=== PATIENT | female | born 1950 | race African-American/Black ===

== ENCOUNTER 2021-08-05 07:23 | Day surgery (SDC) | payer OTHER, SELFPAY ==
[~2021-08-05] VITALS: Ht 165.1 cm; Wt 97.1 kg
[2021-08-05] MEDS ORDERED: SIMETHICONE 40 MG/0.6 ML ML ONE (09:11)
[2021-08-05] MEDS: MEPERIDINE 100 MG INJ. 100 MG/ML VIAL ONE ×2 (09:15→09:33)
[2021-08-05] MEDS: MIDAZOLAM HCL 5 MG/5 ML VIAL ONE ×4 (09:15→09:28)
[2021-08-05 12:34] VITALS: BP_SYST 122
== END 2021-08-05 11:20 | disposition home or self-care (01) ==
LOC: SDS 07:23 → SMU 07:24 → SDS 11:20
PROVIDERS: ATTEND Internal Medicine Gastroenterology
DX: R19.5 Other fecal abnormalities (principal); D12.0 Benign neoplasm of cecum; D12.3 Benign neoplasm of transverse colon; K57.30 Diverticulosis of large intestine without perforation or abscess without bleeding; K64.8 Other hemorrhoids; I10 Essential (primary) hypertension; Z87.891 Personal history of nicotine dependence; Z79.899 Other long term (current) drug therapy
CPT/HCPCS: 36415; 45385; 87426; 88305 ×2; 99152; 99153; G0378; J2175; J2250; 45384

== ENCOUNTER 2021-10-12 08:58 | Day surgery (SDC) | payer OTHER, SELFPAY ==
[~2021-10-12] VITALS: Ht 166.4 cm; Wt 95.7 kg
[2021-10-12] MEDS ORDERED: MIDAZOLAM HCL 5 MG/5 ML VIAL ONE (10:01)
[2021-10-12] MEDS ORDERED: MEPERIDINE 100 MG INJ. 100 MG/ML VIAL ONE (10:01)
[2021-10-12 14:39] VITALS: BP_SYST 115
== END 2021-10-12 12:10 | disposition home or self-care (01) ==
LOC: SDS 08:58 → SMU 09:00 → SDS 12:10
PROVIDERS: ATTEND Internal Medicine Gastroenterology
DX: K92.1 Melena (principal); K57.30 Diverticulosis of large intestine without perforation or abscess without bleeding; K64.8 Other hemorrhoids; K52.9 Noninfective gastroenteritis and colitis, unspecified; I10 Essential (primary) hypertension; Z87.891 Personal history of nicotine dependence; Z88.2 Allergy status to sulfonamides; Z79.899 Other long term (current) drug therapy
CPT/HCPCS: 36415; 45378; 87426; 99152; 99153; G0378; J2175; J2250